=== PATIENT | female | born 1960 | race Caucasian/White ===

== ENCOUNTER 2024-12-13 08:12 | Emergency (ER) | payer OTHER ==
[~2024-12-13] VITALS: Ht 172.7 cm; Wt 61.2 kg
[2024-12-13] MEDS: ORPHENADRINE 60MG/2ML IM ONE (08:38)
[2024-12-13] MEDS: ketOROlac 30MG VIAL (30MG/ML) IM ONE (08:39)
[2024-12-13 10:01] LABS: BASOPHILS # (AUTO) 0.05 K/uL (0.00-0.20); BASOPHILS % (AUTO) 0.4 % (0.0-5.0); EOSINOPHILS # (AUTO) 0.43 K/uL (0.00-0.70); EOSINOPHILS % (AUTO) 3.3 % (0.0-8.0); HEMATOCRIT 40.6 % (36-48); IMMATURE GRANULOCYTE ABSOLUTE 0.04 K/uL (0-1); LYMPHOCYTES # (AUTO) 2.4 K/uL (1.0-4.8); LYMPHOCYTES % (AUTO) 18.4 % (21.0-51.0); MEAN CORPUSCULAR HEMOGLOBIN 31.2 pg (27.0-33.0); MEAN CORPUSCULAR VOLUME 91.9 fL (79-99); MONOCYTES # (AUTO) 1.2 K/uL (0.1-1.0); NEUTROPHILS # (AUTO) 8.9 K/uL (1.8-7.7); NEUTROPHILS % (AUTO) 68.6 % (40.0-77.0); PLATELET COUNT (AUTO) 438 K/uL (130-400); RED BLOOD CELL COUNT(AUTO) 4.42 MIL/uL (4.00-5.50); RED CELL DISTRIBUTION WIDTH 15.4 % (11.0-15.5)
[2024-12-13 10:02] LABS: POTASSIUM 4.2 mmol/L (3.5-5.1)
--- NOTE | 2024-12-13 11:56 | HMCIMG ---
CT ABDOMEN WITHOUT CONTRAST. CT PELVIS WITHOUT CONTRAST. INDICATION: Right hip and pelvic pain TECHNIQUE: Routine transaxial imaging using 5 mm slice thickness through the abdomen and pelvis without the administration of IV contrast. Thin slice reconstructions are also provided. Coronal and sagittal reformatted images acquired for interpretation. CT was performed with one or more of the following dose reduction techniques: Automated exposure control, adjustment of the mA and/or kV according to patient size, or use of iterative reconstruction technique. COMPARISON: None FINDINGS: ON NONCONTRAST IMAGING: ABDOMEN: Examination provided for interpretation at 11:47 AM on 12/13/2024. Heart size is normal. Bilateral lung micronodules/nodules. No abnormal right renal calcifications, hydronephrosis, perinephric inflammation, or proximal hydroureter detected. Left kidney is absent. Several low attenuating lesions of varying sizes throughout the liver without biliary duct dilation. The spleen is absent. The gallbladder appears normal. The pancreas appears normal without pancreatic duct dilation. Right adrenal gland appears normal, but left is not well-visualized. No significant abdominal, retrocrural or retroperitoneal adenopathy noted. No evidence for intra-abdominal free air or organized fluid collection. No aortic aneurysmal dilation identified. PELVIS: No abnormal calcifications within the urinary bladder or distal ureters. No evidence for free air or organized pelvic fluid collection. No significant pelvic adenopathy detected. Moderate proximal to mid colonic as well as far distal colonic/rectal stool burden. Terminal ileum appears unremarkable. The appendix appears normal. Uterus is absent. 2.6 cm lytic lesion within the posterior T12 vertebral body on the right, including subjacent posterior cortical breakthrough and mild right anterolateral central canal stenosis. Streak artifact from left-sided L4-S1 hardware. L5-S1 fusion changes. Mild to moderate thoracolumbar spondylosis.. IMPRESSION: Examination provided for interpretation at 11:47 AM on 12/13/2024. 1. Findings suggesting pulmonary and hepatic metastatic disease as well as 2.6 cm metastatic lytic lesion within the posterior T12 vertebral body on the right with subjacent posterior cortical breakthrough and resultant mild right anterolateral central canal stenosis. 2. Moderate constipation. 3. Absent left kidney and spleen. 4. Additional minor findings, postsurgical changes, and pertinent negatives as reported.
--- NOTE | 2024-12-13 12:08 | ERN ---
General Chief Complaint: Hip Pain/Injury Stated Complaint: RT HIP PAIN-DENIES INJURY Time Seen by MD: 08:16 Source: patient History of Present Illness Initial Comments In his is a 64-year-old female coming in to be evaluated for right hip pain. Patient states he has a extensive history of cancer with metastasis. She states that the pain has been ongoing for several months was prescribed hydrocodone but states that the pain mgmt is not working. Allergies: Coded Allergies: phenytoin (Unverified Allergy, Unknown, 12/19/23) Past Medical History Past Medical History: Cancer, Other Medical History Other: THYROID CA / PELVIS FX Past Surgical History: Surgical History Other: BACK / NEPHRECTOMY ROS Dictation CONSTITUTIONAL: No chills, no fever, no weakness, no diaphoresis, no malaise. HEAD/FACE: No signs of trauma. EENT: No eye pain, no blurred vision, no tearing, no double vision, no ear pain, no ear discharge, no nose pain, no nasal congestion, no throat pain, no throat swelling, no mouth pain. RESPIRATORY: No cough, no orthopnea, no SOB, no stridor, no wheezing. CARDIOVASCULAR: No chest pain, no edema, no palpitations, no syncope. GASTROINTESTINAL/ABDOMINAL: No abdominal pain, no constipation, no diarrhea, no nausea, no vomiting. GENITOURINARY: No abnormal discharge, no dysuria, no frequent urination, no hematuria. No complaints of pain in the genitals. MUSCULOSKELETAL: back pain, no gout, no joint pain, no joint swelling, no muscle pain, no muscle stiffness, no neck pain. INTEGUMENTARY: No change in color, no change in hair/nails, no dryness, no lesion, no lumps, no rash. NEUROLOGICAL/PSYCH: No anxiety, not depressed, no emotional problem, no headache, no numbness, no pre-existing deficit, no history of seizures, no tremors, no weakness. HEMATOLOGIC/LYMPHATIC: Not anemic, no history of blood clots, no apparent bleeding, no bruising, glands not swollen. All Systems Negative, Except as Noted. Physical Exam Physical Exam Dictation VITAL SIGNS: Reviewed. GENERAL APPEARANCE: Alert, oriented x3, no acute distress, obese. HEAD AND FACE: Non-traumatic. EYES: PERRL, pink conjunctivas, eyelid no trauma, anterior chamber clear. EARS: Pinnas intact and no signs of trauma or erythema. Ear canals clear and no discharge. TMs no erythema. NOSE: No discharge, no bleeding. OROPHARYNX: Mouth normal, teeth no caries, tongue pink. Pharynx clear, no erythema. Tonsils no exudates, no abscesses noted. Mucous membrane moist. NECK: Supple, non-tender, no thyromegaly, no masses, no JVD, no bruits. BREAST: Deferred. CHEST: No tenderness, no crepitus, no paradoxical movement, no retractions. LUNGS: Clear, well-ventilated, symmetric, no rales, no wheezing, no rhonchi, no stridor, good breath sounds bilaterally. HEART: Regular rate, regular rhythm, no murmur, no gallops. VASCULAR: No peripheral edema. ABDOMEN: Soft, positive bowel sounds, nondistended, no guarding, nontender, no rebound, no masses no hepatomegaly, no splenomegaly, no Montez's sign, no hernias. RECTAL: Deferred. GENITAL: Deferred. NEUROLOGICAL: Normal speech, gross motor function intact, gross sensory function intact. MUSCULOSKELETAL: Neck nontender, full range of motion, backup sawyer, full range of motion. EXTREMITIES: Nontender, full range of motion. SKIN: Color pink, dry, no turgor, no rash, no lacerations, no abrasions, no contusions. LYMPHATICS: Deferred. Results Laboratory and Microbiology Lab and Micro Result Laboratory Tests Test 12/13/24 09:46 White Blood Count 13.0 K/uL (4.8-10.8) H Red Blood Count 4.42 MIL/uL (4.00-5.50) Hemoglobin 13.8 g/dL (12.0-16.0) Hematocrit 40.6 % (36-48) Mean Corpuscular Volume 91.9 fL (79-99) Mean Corpuscular Hemoglobin 31.2 pg (27.0-33.0) Mean Corpuscular Hemoglobin Concent 34.0 g/dL (32.0-36.0) Red Cell Distribution Width 15.4 % (11.0-15.5) Platelet Count 438 K/uL (130-400) H Mean Platelet Volume 10.5 fL (7.5-10.5) Immature Granulocyte % (Auto) 0.3 % (0-1) Neutrophils (%) (Auto) 68.6 % (40.0-77.0) Lymphocytes (%) (Auto) 18.4 % (21.0-51.0) L Monocytes (%) (Auto) 9.0 % (3.0-13.0) Eosinophils (%) (Auto) 3.3 % (0.0-8.0) Basophils (%) (Auto) 0.4 % (0.0-5.0) Neutrophils # (Auto) 8.9 K/uL (1.8-7.7) H Lymphocytes # (Auto) 2.4 K/uL (1.0-4.8) Monocytes # (Auto) 1.2 K/uL (0.1-1.0) H Eosinophils # (Auto) 0.43 K/uL (0.00-0.70) Basophils # (Auto) 0.05 K/uL (0.00-0.20) Absolute Immature Granulocyte (auto 0.04 K/uL (0-1) Nucleated Red Blood Cells 0.0 % (0.0-0.19) Sodium Level 138 mmol/L (136-145) Potassium Level 4.2 mmol/L (3.5-5.1) Chloride Level 103 mmol/L (101-111) Carbon Dioxide Level 23 mmol/L (21-32) Blood Urea Nitrogen 12 mg/dL (7-18) Creatinine 1.0 mg/dL (0.5-1.0) Glomerular Filtration Rate Calc 63 mL/min (>90) Random Glucose 107 mg/dL (70-105) H Total Calcium 9.6 mg/dL (8.5-10.1) Labs Reviewed?: Yes EKG/XRAY/US/CT/MRI CT Scan Comment [address] [address] IMAGING REPORT Signed PATIENT: ABDIAZIZ SILVA MR#: [id number] : 1960 SEX: F AGE: 64 LOCATION: [facility] ORDER 7 STATUS: REG ER REPORT#: [id number] SERVICE 4 REASON: right hip pain/ pelvis ORDERING PHYSICIAN: MUKUL LUTZ MD PROCEDURE: ABD PEL WO - CT ABDOMEN/PELVIS W/O CONTRAST CT ABDOMEN WITHOUT CONTRAST. CT PELVIS WITHOUT CONTRAST. INDICATION: Right hip and pelvic pain TECHNIQUE: Routine transaxial imaging using 5 mm slice thickness through the abdomen and pelvis without the administration of IV contrast. Thin slice reconstructions are also provided. Coronal and sagittal reformatted images acquired for interpretation. CT was performed with one or more of the following dose reduction techniques: Automated exposure control, adjustment of the mA and/or kV according to patient size, or use of iterative reconstruction technique. COMPARISON: None FINDINGS: ON NONCONTRAST IMAGING: ABDOMEN: Examination provided for interpretation at 11:47 AM on 12/13/2024. Heart size is normal. Bilateral lung micronodules/nodules. No abnormal right renal calcifications, hydronephrosis, perinephric inflammation, or proximal hydroureter detected. Left kidney is absent. Several low attenuating lesions of varying sizes throughout the liver without biliary duct dilation. The spleen is absent. The gallbladder appears normal. The pancreas appears normal without pancreatic duct dilation. Right adrenal gland appears normal, but left is not well-visualized. No significant abdominal, retrocrural or retroperitoneal adenopathy noted. No evidence for intra-abdominal free air or organized fluid collection. No aortic aneurysmal dilation identified. PELVIS: No abnormal calcifications within the urinary bladder or distal ureters. No evidence for free air or organized pelvic fluid collection. No significant pelvic adenopathy detected. Moderate proximal to mid colonic as well as far distal colonic/rectal stool burden. Terminal ileum appears unremarkable. The appendix appears normal. Uterus is absent. 2.6 cm lytic lesion within the posterior T12 vertebral body on the right, including subjacent posterior cortical breakthrough and mild right anterolateral central canal stenosis. Streak artifact from left-sided L4-S1 hardware. L5-S1 fusion changes. Mild to moderate thoracolumbar spondylosis.. IMPRESSION: Examination provided for interpretation at 11:47 AM on 12/13/2024. 1. Findings suggesting pulmonary and hepatic metastatic disease as well as 2.6 cm metastatic lytic lesion within the posterior T12 vertebral body on the right with subjacent posterior cortical breakthrough and resultant mild right anterolateral central canal stenosis. 2. Moderate constipation. 3. Absent left kidney and spleen. 4. Additional minor findings, postsurgical changes, and pertinent negatives as reported. DICTATED BY: GINA MUNOZ MD DATE: 12/13/24 1147 ELECTRONICALLY SIGNED BY: GINA MUNOZ MD DATE: 12/13/24 1156 MDM MDM: Differential diagnosis: Metastasis of cancer, History of thyroid cancer ,chronic back pain Patient is a 64-year-old female coming in to be evaluated for back pain. [place] nt states he has a extensive history of back pain was placed on hydrocodone but believes he was not working. CT of the abdomen was performed because patient also had nausea and vomiting. CT disclose constipation with lytic lesions of the spine secondary to metastasis. Patient will be treated with pain meds and I did advised her appropriate follow up with PCP. ED Course Orders Procedure Category Date Status Time Orphenadrine Citrate PHA 12/13/24 Complete (Norflex) 08:30 Ketorolac PHA 12/13/24 Complete Tromethamine 30mg/Ml 08:30 Ct Abdomen/Pelvis W/O CT 12/13/24 Resulted Contrast 08:25 Cbc With Differential LAB 12/13/24 Complete 09:34 Basic Metabolic Panel LAB 12/13/24 Complete 09:34 Drug Screen Urine LAB 12/13/24 Logged 09:34 Urinalysis LAB 12/13/24 Logged W/Microscopic 09:34 Magnesium Citrate PHA 12/13/24 Logged (Magnesium Citrate) 12:30 Current Medications Medications (Trade) Dose Ordered Sig/Becka Route PRN Reason Start Time Stop Time Status Last Admin Dose Admin Ketorolac Tromethamine (toRADol) 30 mg ONCE ONCE IM 12/13/24 08:30 12/13/24 08:31 DC 12/13/24 08:39 Magnesium Citrate (Magnesium Citrate) 296 ml ONCE ONCE PO 12/13/24 12:30 12/13/24 12:31 UNV Orphenadrine Citrate (Norflex) 60 mg ONCE ONCE IM 12/13/24 08:30 12/13/24 08:31 DC 12/13/24 08:38 Vital Signs Date Time Temp Pulse Resp B/P (MAP) Pulse Ox O2 Delivery O2 Flow Rate FiO2 12/13/24 08:13 97.2 85 18 170/94 96 Room Air 0 DX & DISP Disposition: Discharge Departure Impression: Primary Impression: Multiple lesions of metastatic malignancy Additional Impressions: Constipation, Drug-seeking behavior Condition: Stable Additional Instructions: FOLLOW-UP WITH PRIMARY CARE PROVIDER IN 1 TO 2 DAYS. TAKE MEDICATIONS DIRECTED HERE IN THE EMERGENCY ROOM. OKAY TO CONTINUE HOME MEDICATIONS UNLESS OTHERWISE DISCUSSED DURING YOUR VISIT IN THE EMERGENCY ROOM TODAY. RETURN TO YOUR NEAREST EMERGENCY ROOM IF SYMPTOMS WORSEN OR IF THERE IS NO IMPROVEMENT. CALL 911 IF YOU NEED IMMEDIATE ASSISTANCE. TAKE TYLENOL [id number] NEEDED AND IF NO CONTRAINDICATIONS ARE PRESENT. INCREASE ORAL HYDRATION. A WOUND CULTURE OR URINE CULTURE WAS ORDERED HERE IN THE EMERGENCY ROOM DEPARTMENT PLEASE FOLLOW-UP WITH PRIMARY CARE PROVIDER AND ADVISE THEM TO GET REPEAT PORTS FROM OUR FACILITY. IF YOU HAD ANY LYNNE WRAP/SPLINTS THAT WERE APPLIED HERE, PLEASE DO NOT REMOVE THEM UNTIL YOU SEE YOUR PRIMARY CARE OR SPECIALTY. Referrals: Referrals: SELF,REFERRAL (PCP) Time of Disposition: 12:08 MUKUL LUTZ MD Dec 13, 2024 12:08
[2024-12-13] MEDS: MAGNESIUM CITRATE 296 ML SOLUTION PO ONE (12:33)
[2024-12-13] MEDS: morPHINE 4 MG SYG IM ONE (12:34)
[2024-12-13 12:48] VITALS: BP 159/87; PULSE 80; RESP 18; TEMP 97.5; O2SAT 97
== END 2024-12-13 12:50 | disposition home or self-care (01) ==
LOC: EDH 08:12
DX: C79.51 Secondary malignant neoplasm of bone (principal); K59.00 Constipation, unspecified; Z76.5 Malingerer [conscious simulation]; Z90.5 Acquired absence of kidney
CPT/HCPCS: 99284; 74176; 80048; 85025; 36415; 96372 ×3; J1885; J2270; 99283; J2360